=== PATIENT | male | born 1995 | race Caucasian/White ===

== ENCOUNTER 2017-12-09 09:12 | Emergency (ER) | payer SELFPAY ==
[2017-12-09 10:04] VITALS: BP 146/82
--- NOTE | 2017-12-09 10:15 | UC ---
Skin Complaint HPI - HPI Summary HPI Summary: bumpy rash on right forearm , right lower back x 2 days + redness, itchy, no change in soap, detergent, no new food no cough, no runny nose, no fever, no chills - History of Current Complaint Chief Complaint: UCGeneralIllness Time Seen by Provider: 12/09/17 10:06 Stated Complaint: FLU SYMPTOMS Hx Obtained From: Patient Onset/Duration: Gradual Onset, Lasting Days - 2, Still Present Timing: Constant Onset Severity: Moderate Current Severity: Moderate Pain Intensity: 0 Location: Discrete - right forearm, right lower back Character: Pruritus, Redness Aggravating Factor(s): Nothing Alleviating Factor(s): Nothing Associated Signs & Symptoms: Positive: Negative - Allergy/Home Medications Allergies/Adverse Reactions: Allergies Allergy/AdvReac Type Severity Reaction Status Date / Time Penicillins Allergy Vomiting Verified 12/09/17 09:52 Home Medications: Home Medications Benzocaine/Resorcinol [Anti-Itch Cream] 1 applic TOPICAL BID PRN 12/09/17 [ History Confirmed 12/09/17] Review of Systems Constitutional: Negative Skin: Rash Eyes: Negative ENT: Negative Respiratory: Negative Cardiovascular: Negative Is Patient Immunocompromised?: No All Other Systems Reviewed And Are Negative: Yes PMH/Surg Hx/FS Hx/Imm Hx Previously Healthy: Yes - Surgical History Surgical History: None - Family History Known Family History: Negative: Diabetes - Social History Alcohol Use: Weekly Alcohol Amount: 25 Substance Use Type: None Substance Use Comment - Amount & Last Used: occasional use- last night last used Smoking Status (MU): Heavy Every Day Tobacco Smoker Type: eCigarettes Amount Used/How Often: 300 puffs/day Physical Exam Triage Information Reviewed: Yes Appearance: Well-Appearing, No Pain Distress, Well-Nourished Vital Signs: Initial Vital Signs Temp 98.7 F 12/09/17 09:55 Pulse 97 12/09/17 09:55 Resp 18 12/09/17 09:55 BP 146/82 12/09/17 09:55 Pulse Ox 98 12/09/17 09:55 Vital Signs Reviewed: Yes Eyes: Positive: Conjunctiva Clear ENT: Positive: Normal ENT inspection, Hearing grossly normal, Pharynx normal Neck: Positive: Supple, Nontender, No Lymphadenopathy Respiratory: Positive: Chest non-tender, Lungs clear, Normal breath sounds Cardiovascular: Positive: RRR, No Murmur, Pulses Normal Skin: Positive: rashes - multiple papular rash on right forearm , right lower back Course/Dx - Diagnoses Provider Diagnoses: dermatitis Discharge - Discharge Plan Condition: Stable Disposition: HOME Prescriptions: Triamcinolone 0.1% CREAM(NF) [Kenalog 0.1% Cream (NF)] 1 applic TOPICAL BID #30 gm Patient Education Materials: Dermatitis (ED) Referrals: No Primary Care Phys,NOPCP [Primary Care Provider] - If Needed
== END 2017-12-09 10:20 | disposition home or self-care (01) ==
LOC: UCCORT 09:12
DX: L30.9 Dermatitis, unspecified (principal); Z72.89 Other problems related to lifestyle; F17.210 Nicotine dependence, cigarettes, uncomplicated
CPT/HCPCS: 99202; G0463